=== PATIENT | male | born 1975 | race Caucasian/White ===

== ENCOUNTER 2017-09-11 09:58 | Emergency (ER) | payer OTHER ==
[2017-09-11 10:04] VITALS: O2SAT 100
--- NOTE | 2017-09-11 10:10 | C.PDOC ---
History Of Present Illness Patient is a 41 y/o M presenting with laceration to his L palm. 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 Reports last tetanus 3 years ago. Denies other injury. Time Seen by Provider: 09/11/17 10:05 Chief Complaint (Nursing): Abnormal Skin Integrity Past Medical History Vital Signs: Last Vital Signs Temp 98.9 F 09/11/17 12:15 Pulse 65 09/11/17 12:15 Resp 20 09/11/17 12:15 BP 103/66 09/11/17 12:15 Pulse Ox 100 09/11/17 12:28 Family History: States: No Known Family Hx - Social History Hx Alcohol Use: No Hx Substance Use: No - Immunization History Hx Tetanus Toxoid Vaccination: Yes Hx Influenza Vaccination: No Hx Pneumococcal Vaccination: No Review Of Systems Constitutional: Negative for: Fever, Chills Musculoskeletal: Negative for: Arm Pain Skin: Positive for: Lesions (laceration) Neurological: Negative for: Weakness, Numbness Physical Exam - Physical Exam Appears: Well, Non-toxic, No Acute Distress Head: Atraumatic, Normacephalic Eye(s): bilateral: Normal Inspection, PERRL, EOMI Extremity: Other (7.5cm laceration to L palm along thenar eminence. Normal ROM and strength. Normal flexion and extension. Able to make fist. Able to give thumbs up. Normal strength. Normal sensation. Normal radial pulse. Capillary refill <2 seconds. No active bleeding ) Neurological/Psych: Oriented x3, Normal Speech, Normal Cranial Nerves, Normal Motor, Normal Sensation Gait: Steady ED Course And Treatment O2 Sat by Pulse Oximetry: 100 Progress Note: Xray negative for foreign body. Normal ROM and strength. Laceration - Laceration Repair No standard instances Wound Length (In cm): 7.5 Description Of Wound: Linear Wound Cleansed With: Betadine, Sterile Saline Anesthesia: Lidocaine 2% Wound Examination: Irrigated With Saline, No FB With Wound Exploration, No Tendon Injury With Wound Exploration Wound Closure: Suture (11) Suture Technique And Material Used: Interrupted Wound Complexity: Simple (laceration repair done by Kelsey winn, resident physician and supervised by me) Disposition - Disposition Referrals: [facility] [Outside] Disposition: HOME/ ROUTINE Disposition Time: 12:13 Condition: GOOD Additional Instructions: Follow-up with Clinic in 7-10 days for suture removal. Return to ED if condition worsens. Forms: [facility] (Kinyarwanda), Work Excuse - Clinical Impression Clinical Impression: Laceration
[2017-09-11] MEDS: Oxycodone/Acetaminophen 5/325 mg Tab PO STA (10:22)
[2017-09-11] MEDS ORDERED: Lidocaine 2% MPF (5 ml) Inj ONE ×2 (10:23)
[2017-09-11] MEDS ORDERED: Oxycodone/Acetaminophen 5/325 mg Tab ONE (10:24)
[2017-09-11] MEDS: Lidocaine 2% Inj (20ml) INFIL STA (11:14)
--- NOTE | 2017-09-11 11:30 | RAD ---
PROCEDURE: Left Hand Radiographs. HISTORY: laceration to palm, r/o foreign body COMPARISON: None. FINDINGS: BONES: No fracture identified. JOINTS: No dislocation seen. Bony articulations appear maintained. SOFT TISSUES: Likely laceration along the palmar surface of the hand with overlying skin dressing. No radiopaque foreign body identified. OTHER FINDINGS: None. IMPRESSION: No radiopaque foreign body identified.
[2017-09-11] MEDS ORDERED: Bacitracin 500 Units/gm Oint Foilpak UD ONE (11:43)
[2017-09-11 12:16] VITALS: BP 103/66; PULSE 65; RESP 20; TEMP 98.9
== END 2017-09-11 12:16 | disposition home or self-care (01) ==
LOC: C.ER 09:58
DX: S61.412A Laceration without foreign body of left hand, initial encounter (principal); W26.0XXA Contact with knife, initial encounter; Y92.89 Other specified places as the place of occurrence of the external cause; Y99.0 Civilian activity done for income or pay

== ENCOUNTER 2018-03-16 19:21 | Emergency (ER) | payer OTHER ==
--- NOTE | 2018-03-16 20:41 | C.PDOC ---
History Of Present Illness 42 year old male presents to the ED c/o left trapezius area tenderness. Patient reports that yesterday he was moving heavy water heaters. Patient states pain worsens with hot showers or heat treatments. Patient denies fever, chills, nausea, vomit, injury, fall, trauma. Time Seen by Provider: 03/16/18 20:26 Chief Complaint (Nursing): Chest Pain History Per: Patient History/Exam Limitations: no limitations Onset/Duration Of Symptoms: Days Current Symptoms Are (Timing): Still Present Quality Of Discomfort: "Pain" Exacerbating Factor(s): Movement Recent travel outside of the [place]: No Additional History Per: Patient Past Medical History Reviewed: Historical Data, Nursing Documentation, Vital Signs Vital Signs: Last Vital Signs Temp 98.9 F 03/16/18 19:43 Pulse 72 03/16/18 19:43 Resp 18 03/16/18 19:43 BP 120/79 03/16/18 19:43 Pulse Ox 97 03/16/18 19:43 - Medical History PMH: No Chronic Diseases Surgical History: No Surg Hx Family History: States: Unknown Family Hx - Social History Hx Alcohol Use: No Hx Substance Use: No - Immunization History Hx Tetanus Toxoid Vaccination: No Hx Influenza Vaccination: No Hx Pneumococcal Vaccination: No Review Of Systems Constitutional: Negative for: Fever, Chills Cardiovascular: Negative for: Chest Pain Respiratory: Negative for: Shortness of Breath Gastrointestinal: Negative for: Nausea, Vomiting, Abdominal Pain Musculoskeletal: Positive for: Shoulder Pain Skin: Negative for: Rash Physical Exam - Physical Exam Appears: Non-toxic, No Acute Distress, Other (large muscular black male) Skin: Normal Color, Warm, Dry Head: Atraumatic, Normacephalic Eye(s): bilateral: Normal Inspection Neck: Normal ROM, Supple Chest: Symmetrical Cardiovascular: Rhythm Regular Respiratory: Normal Breath Sounds, No Rales, No Rhonchi, No Wheezing Gastrointestinal/Abdominal: Soft, No Tenderness, No Guarding, No Rebound Back: Muscle Spasm (left trapezius area) Extremity: Normal ROM, No Tenderness, No Swelling Neurological/Psych: Oriented x3, Normal Speech, Normal Cognition Gait: Steady ED Course And Treatment O2 Sat by Pulse Oximetry: 97 (ON RA) Pulse Ox Interpretation: Normal Medical Decision Making Medical Decision Making: L>R trapezius strain/sprain worse with heat therapies @ home. no neuro issues. Disposition Doctor Will See Patient In The: Office Counseled Patient/Family Regarding: Studies Performed, Diagnosis - Disposition Referrals: [facility] [Outside] [facility] [Outside] [facility] [Outside] [facility] [Outside] Disposition: HOME/ ROUTINE Disposition Time: 20:44 Condition: GOOD Additional Instructions: ice packs 1/2 hour per hour, NOTHING HOT! no hot showers for 3 days Motrin/Advil 600 mg every 6 hours as needed. Instructions: Muscle Strain (DC), Cervical Muscle Strain Forms: [facility] (French) - Clinical Impression Clinical Impression: Strain of trapezius muscle - Scribe Statement The provider has reviewed the documentation as recorded by the Scribe Jeb Shoemaker All medical record entries made by the Scribe were at my direction and personally dictated by me. I have reviewed the chart and agree that the record accurately reflects my personal performance of the history, physical exam, medical decision making, and the department course for this patient. I have also personally directed, reviewed, and agree with the discharge instructions and disposition.
[2018-03-16 20:57] VITALS: BP 119/78; PULSE 71; RESP 16; TEMP 97.7
[2018-03-17 00:44] VITALS: O2SAT 97
--- NOTE | 2018-03-18 09:16 | CARD ---
APPROVED REPORT Date of service: 03/16/2018 EKG Measurement Heart [id number] <Conclusion> Normal sinus rhythm Normal ECG
== END 2018-03-16 20:57 | disposition home or self-care (01) ==
LOC: C.ER 19:21
DX: S46.912A Strain of unspecified muscle, fascia and tendon at shoulder and upper arm level, left arm, initial encounter (principal); X50.9XXA Other and unspecified overexertion or strenuous movements or postures, initial encounter